=== PATIENT | male | born 1995 | race Caucasian/White ===

== ENCOUNTER 2018-11-20 21:12 | Emergency (ER) | payer SELFPAY ==
[2018-11-20 23:33] LABS: ABSOLUTE BASOPHILS # (AUTO) 0.1 10^3/uL (0.0-0.2); ABSOLUTE EOSINOPHILS # (AUTO) 0.5 10^3/uL (0.0-0.6); ABSOLUTE LYMPHOCYTES (AUTO) 2.3 10^3/uL (0.5-4.7); ABSOLUTE MONOCYTES (AUTO) 0.7 10^3/uL (0.1-1.4); ABSOLUTE NEUT (AUTO) 4.1 10^3/uL (1.7-8.2); BASOPHILS % (AUTO) 0.7 % (0-2); HEMATOCRIT 42.7 % (37.9-51.0); HEMOGLOBIN 14.8 g/dL (13.5-17.0); LYMPHOCYTES % (AUTO) 30.5 % (13-45); MEAN CORPUSCULAR HEMOGLOBIN 31.3 pg (27.0-33.4); MEAN CORPUSCULAR HGB CONC 34.6 g/dL (32.0-36.0); MEAN CORPUSCULAR VOLUME 90 fl (80-97); PLATELET COUNT 228 10^3/uL (150-450); RED BLOOD COUNT 4.73 10^6/uL (4.35-5.55); RED CELL DISTRIBUTION WIDTH 12.1 % (11.5-14.0); SEGMENTED NEUTROPHILS % (AUTO) 53.8 % (42-78); TOTAL CELLS COUNTED % (AUTO) 100 %; WHITE BLOOD COUNT 7.7 10^3/uL (4.0-10.5)
[2018-11-20 23:46] LABS: ALANINE AMINOTRANSFERASE 19 U/L (21-72); ALBUMIN 4.1 g/dL (3.5-5.0); ALKALINE PHOSPHATASE 56 U/L (38-126); ANION GAP 9 (5-19); ASPARTATE AMINO TRANSFERASE 19 U/L (17-59); BILIRUBIN,DIRECT 0.3 mg/dL (0.0-0.4); BILIRUBIN,TOTAL 0.4 mg/dL (0.2-1.3); BLOOD UREA NITROGEN 16 mg/dL (7-20); CALCIUM 9.6 mg/dL (8.4-10.2); CARBON DIOXIDE 27 mmol/L (22-30); CHLORIDE 106 mmol/L (98-107); GLUCOSE 93 mg/dL (75-110); POTASSIUM 3.7 mmol/L (3.6-5.0); SODIUM 142.3 mmol/L (137-145); TOTAL PROTEIN 6.9 g/dL (6.3-8.2)
[2018-11-20 23:52] LABS: ACETAMINOPHEN < 10 ug/mL (10-30); ALCOHOL < 10 mg/dL (NONE DETECTED); SALICYLATE < 1.0 mg/dL (2.0-20.0)
--- NOTE | 2018-11-21 00:20 | ER Document Report ---
Addendum entered and electronically signed by JAVED FERNANDEZ DO 11/21/18 18:28: Discharge - Discharge Clinical Impression: Psychiatric complaint, Social discord Condition: Good Disposition: HOME, SELF-CARE Additional Instructions: You have been evaluated both medical and behavioral health teams have been deemed appropriate for discharge. You have been provided a prescription for Zyprexa 5 mg twice daily and Cogentin 1 mg daily; please take as directed. You are encouraged to follow-up with outpatient mental health services. Please contact [facility] for continued assistance in obtaining services. AT ANY TIME, IF YOUR SYMPTOMS CHANGE SIGNIFICANTLY OR WORSEN OR YOU DEVELOP NEW SYMPTOMS, RETURN TO THE EMERGENCY DEPARTMENT IMMEDIATELY FOR RE-EVALUATION. Prescriptions: Benztropine Mesylate [Cogentin 1 mg Tablet] 1 tab PO DAILY #7 tab Olanzapine [Zyprexa 5 mg Tablet] 5 mg PO DAILY #7 tablet Referrals: [facility] [Outside] - Follow up as needed Addendum entered and electronically signed by LUANNE TADEO LCSWA 11/21/18 17:48: Discharge - Discharge Clinical Impression: Psychiatric complaint, Social discord Condition: Good Disposition: HOME, SELF-CARE Additional Instructions: You have been evaluated both medical and behavioral health teams have been deemed appropriate for discharge. You have been provided a prescription for Zyprexa 5 mg twice daily and Cogentin 1 mg daily; please take as directed. You are encouraged to follow-up with outpatient mental health services. Please contact [facility] for continued assistance in obtaining services. AT ANY TIME, IF YOUR SYMPTOMS CHANGE SIGNIFICANTLY OR WORSEN OR YOU DEVELOP NEW SYMPTOMS, RETURN TO THE EMERGENCY DEPARTMENT IMMEDIATELY FOR RE-EVALUATION. Referrals: [facility] [Outside] - Follow up as needed Original Note: ED General - General Chief Complaint: Psych Problem Stated Complaint: PSYCH EVAL Time Seen by Provider: 11/20/18 22:58 Cannot obtain history due to: Uncooperative Notes: Patient is a 23-year-old male with no known past medical history by his report who presents by [facility] "needing a psychiatric evaluation". The patient is a very tangential, difficult historian and is quite evasive about why he is actually here in the emergency department. I did stay in the room for over 30 minutes try to get a clear history from the patient unsuccessfully. The most accurate detail I can gather is that the patient has had a significant conflict with his family over the last several days. He relates that the police were called out to his brother's home 3 days ago and that they ended up pulling a taser on the patient but did not have to use it. He would not clarify as to why this actually happened. He states that he has been living at a hotel for the last several days, his mother called him today and apparently after that conversation [facility] was called. He does not espouse the details of his conversation with his mother that led to mobile [facility] being called. [facility] states that the patient did not have any acute safety concerns and that he is here on a voluntary basis. Patient denies any acute medical concerns. History is otherwise limited secondary to patient's cooperativity. TRAVEL OUTSIDE OF THE [place] IN LAST 30 DAYS: No - Related Data Allergies/Adverse Reactions: albuterol Allergy (Verified 03/24/18 12:52) Past Medical History - General Information source: Patient - Social History Smoking Status: Current Some Day Smoker Frequency of alcohol use: None Drug Abuse: None Lives with: Alone Family History: Reviewed & Not Pertinent Patient has suicidal ideation: No Patient has homicidal ideation: No Pulmonary Medical History: Reports: Hx Asthma Renal/ Medical History: Denies: Hx Peritoneal Dialysis Review of Systems - Review of Systems Notes: Constitutional: Negative for fever. HENT: Negative for sore throat. Eyes: Negative for visual changes. Cardiovascular: Negative for chest pain. Respiratory: Negative for shortness of breath. Gastrointestinal: Negative for abdominal pain, vomiting or diarrhea. Genitourinary: Negative for dysuria. Musculoskeletal: Negative for back pain. Skin: Negative for rash. Neurological: Negative for headaches, weakness or numbness. 10 point ROS negative except as marked above and in HPI. Physical Exam - Vital signs Vitals: Temp Pulse Resp BP Pulse Ox 97.5 F 63 14 151/78 H 98 11/20/18 21:32 11/20/18 21:32 11/20/18 21:32 11/20/18 21:32 11/20/18 21:32 Interpretation: Hypertensive Notes: PHYSICAL EXAMINATION: GENERAL: Well-appearing, well-nourished and in no acute distress. HEAD: Atraumatic, normocephalic. EYES: Pupils equal round and reactive to light, extraocular movements intact, sclera anicteric, conjunctiva are normal. ENT: nares patent, oropharynx clear without exudates. Moist mucous membranes. NECK: Normal range of motion, supple without lymphadenopathy LUNGS: Breath sounds clear to auscultation bilaterally and equal. No wheezes rales or rhonchi. HEART: Regular rate and rhythm without murmurs ABDOMEN: Soft, nontender, normoactive bowel sounds. No guarding, no rebound. No masses appreciated. EXTREMITIES: Normal range of motion, no pitting or edema. No cyanosis. NEUROLOGICAL: No focal neurological deficits. Moves all extremities spontaneously and on command. PSYCH: Unusual affect, appropriate eye contact, quite evasive during questioning, tangential thought process. SKIN: Warm, Dry, normal turgor, no rashes or lesions noted. Course - Re-evaluation Re-evalutation: 11/21/18 00:19 Patient presents by [facility] due to concerns of erratic behavior and thought processes. The patient is evasive on history taking but after 30 minutes at the bedside at no point demonstrated any thought processes or behaviors that would indicate risk for self-harm or harm of other people. Calm, cooperative somewhat tangential and disorganized thought process. Denies any acute medical concerns. Medical screening labs and physical exam unremarkable. Cleared for evaluation and disposition by behavioral - Vital Signs Vital signs: Temp Pulse Resp BP Pulse Ox 97.5 F 63 14 151/78 H 98 11/20/18 21:32 11/20/18 21:32 11/20/18 21:32 11/20/18 21:32 11/20/18 21:32 - Laboratory Result Diagrams: 11/20/18 22:08 11/20/18 22:08 Laboratory results interpreted by me: 11/20/18 22:08 ALT 19 L Salicylates < 1.0 L Acetaminophen < 10 L - EKG Interpretation by Me Additional EKG results interpreted by me: 11/21/18 00:20 Sinus bradycardia, rate 57. No ST elevations or depressions. QTC 370. Discharge - Discharge Clinical Impression: Psychiatric complaint, Social discord Condition: Good Disposition: PSYCH HOSP/UNIT
[2018-11-21 03:39] LABS: APPEARANCE,URINE CLOUDY; BILIRUBIN,URINE NEGATIVE (NEGATIVE); COLOR,URINE YELLOW; GLUCOSE, URINE NEGATIVE (NEGATIVE); KETONES,URINE NEGATIVE (NEGATIVE); LEUKOCYTE ESTERASE,URINE NEGATIVE (NEGATIVE); NITRITE,URINE NEGATIVE (NEGATIVE); PROTEIN,URINE NEGATIVE (NEGATIVE); URINE SPECIFIC GRAVITY 1.019; UROBILINOGEN,URINE NEGATIVE mg/dL (<2.0)
[2018-11-21 03:43] LABS: URINE AMPHETAMINES SCREEN NEGATIVE; URINE BARBITURATES SCREEN NEGATIVE; URINE BENZODIAZEPINES SCREEN NEGATIVE; URINE COCAINE SCREEN NEGATIVE; URINE MARIJUANA (THC) SCREEN NEGATIVE; URINE METHADONE SCREEN NEGATIVE; URINE PHENCYCLIDINE SCREEN NEGATIVE
--- NOTE | 2018-11-21 10:31 | ER Document Report ---
Doctor's Note Notes: 11/21/18 10:30 Patient seen and examined, vital signs reviewed, chart reviewed, patient is withdrawn this morning, poor historian, not wanting to talk extensively, he states that he was living in a hotel, and that his mother called to bring him here, he is been having arguments with his family, he denies any current suicid al, homicidal or delusions or hallucinations at this time. He states that he would likely go back to the hotel if he was discharged today. He denies any need for any help from me at this time. Will discuss further with the behavioral health team for final disposition.
[2018-11-21] MEDS ORDERED: OLANZAPINE 5 MG TABLET PO ONE (18:24)
[2018-11-21] MEDS ORDERED: BENZTROPINE MESYLATE 1 MG TABLET PO ONE (18:24)
[2018-11-21 19:44] VITALS: BP 117/68
--- NOTE | 2018-11-21 22:31 | EKG REPORT ---
SEVERITY:- ABNORMAL ECG - POSSIBLE ATRIAL ARRHYTHMIA, A-RATE [address] ELEVATION, INFERIOR LEADS : Confirmed by: Amber Morales MD 21-Nov-2018 22:31:11
--- NOTE | 2018-11-23 13:12 | PSYCHOLOGICAL NOTE ---
Psych Note - Psych Note Date seen by psych provider: 11/21/18 Time seen by psych provider: 08:15 Psych Note: Reason for Consult: patient requested Consent permissions: Patient's mother, Padmini, [facility] outreach worker: Libby Patient is a 23-year-old male with no known past medical history by his report who presents by [facility] "needing a psychiatric evaluation". Patient reports that his mother called [facility] and then told him to call them. He reports he called them for "housing." He continued to report that he only agreed to come here because he was told by [facility] that in order to get help for housing he had to come for psychiatric evaluation. Patient disclosed that he now has even had to give blood and feels that there was way more involved in order to receive assistance. Patient again confirms that he called [facility] for assistance in housing. When asked about his crisis since [facility] is a crisis intervention program for mental health, the patient responded,"physical and mental are connected." When asked if he has a mental health diagnosis, patient becomes very agitated and states, "no....you just can't come in here and wake people up and ask a bunch of questions...people that do that need psychiatric help." The behavioral health team spoke with patient's mother, Padmini, on multiple occasions through out the day. She confirms that patient drinks cough syrupy "like water" but that when he is confronted about it he says it is legal and he has no plans to stop. She is concerned the patient has "burned every bridge" with his family and is "very manipulative and tries to talk people in circles" because he thinks he is significantly more intelligent then others. She confirms she had him reach out to [facility] because he needs help because is moods are so extreme and now has no where to live. She reports the patient is unable to live with her because once he moves in he takes advange of the situation and becomes "nasty" stating he will not leave that he has to be evicted. She reports there is some family in the local area; however, she believes they will not allow him to come back to their home. She reports that if the patient gets help and takes medication he can return to [place] but she will still not allow him to live in her home. Patient is alert and orientated to person, place, time and circumstances. Mood is irritable with congruent affect. Patient denies suicidal homicidal ideation. Delusions are absent behaviors congruent with an intact reality based presentation i.e. organized and linear thought process. Eye contact is poor. Intellectual abilities appear to be low average range. Attention and concentration fair. Insight, judgment, impulse control is fair. Chart review conducted: Patient was seen by this Behavioral Health Team for an [facility] ED visit from 03/24/2018 until 03/29/2018. There was concern the patient was presenting manic with delusions of grandeur. His thought processes were overall organized and linear but illogical with times that were tangential and other times indicating flight of thought. Patient reported a history of drug use but family disputed resent use and toxicology screenings indicated no findings. Medication recommendations per [facility]'s contracted psychiatrist Dr. Anita HUGHES are as follows Cogentin 1 mg daily zyprexa 5 mg twice per day 296.80 (F31.9) Unspecified Bipolar disorder 292.9 (F19.99) other substance related disorder; DXM Impression\\plan:Patient is cleared from acute psychiatric services. He denies suicidal and homicidal ideation. He is not presenting with any behaviors indicating he is responding to internal stimuli i.e. organized linear thought processes, good eye contact, and normal conversational speech. He is not presenting manic. Patient currently reports that he will take medications; however, there is significant indications that the patient has no interest in taking medications as he does not feel that he has a mental health diagnosis. Patient was highly encouraged to follow-up with outpatient mental health services and was provided psychoeducation on substance abuse, his diagnosis, symptoms and therapeutic services. Patient contacted [facility] crisis for continued assistance after discharge while still in the ED (observed by [facility] staff) for continued assistance. Dr. Childers was consulted on the care and management of this patient; attending physician is in agreement with recommendations and disposition.
== END 2018-11-21 19:30 | disposition home or self-care (01) ==
LOC: ER 21:12
DX: Z00.8 Encounter for other general examination (principal); Z63.8 Other specified problems related to primary support group; F17.200 Nicotine dependence, unspecified, uncomplicated; J45.909 Unspecified asthma, uncomplicated; Z88.8 Allergy status to other drugs, medicaments and biological substances
CPT/HCPCS: 36415; 80053; 80307; 81001; 85025; 93005; 93010; 99285